=== PATIENT | male | born 1950 | race Caucasian/White ===

== ENCOUNTER → 2017-10-23 12:17 | Emergency (ER) | payer BC | END | disposition left against medical advice (07) | LOC: UCCORT 12:17 | DX: J32.9 Chronic sinusitis, unspecified (principal); Z53.21 Procedure and treatment not carried out due to patient leaving prior to being seen by health care provider ==

== ENCOUNTER 2018-01-05 12:27 | Emergency (ER) | payer MEDICARE, BC ==
[2018-01-05 14:06] VITALS: BP 149/82
--- NOTE | 2018-01-05 14:15 | UC ---
Back Pain HPI - HPI Summary HPI Summary: pt is c/o pain in his R low back for about 3 weeks. states gets spasms as well. it began the day after he was bent over cleaning out his hot tub. occasional shoots to his R side with a spasm. no relief with occasional tylenol - History of Current Complaint Chief Complaint: UCBackPain Stated Complaint: BACK PAIN Time Seen by Provider: 01/05/18 14:08 Hx Obtained From: Patient Onset/Duration: Gradual Onset Timing: Constant Pain Intensity: 4 Aggravating Factor(s): Movement Alleviating Factor(s): Rest Associated Signs And Symptoms: Negative: Fever, Weakness, Numbness, Tingling, Abdominal Pain, Flank Pain, Bladder Incontinence, Bowel Incontinence - Risk Factors Cauda Equina Risk Factors: Negative - Allergies/Home Medications Allergies/Adverse Reactions: Allergies Allergy/AdvReac Type Severity Reaction Status Date / Time No Known Allergies Allergy Verified 01/05/18 14:07 Home Medications: Home Medications B/P Med 1 tab PO DAILY 01/05/18 [History] PMH/Surg Hx/FS Hx/Imm Hx Cardiovascular History: Hypertension - Surgical History Surgical History: None - Social History Occupation: Retired Lives: With Family Alcohol Use: Weekly Substance Use Type: Marijuana Substance Use Comment - Amount & Last Used: occasional usage Smoking Status (MU): Never Smoked Tobacco - Immunization History Vaccination Up to Date: Yes Review of Systems Constitutional: Negative Skin: Negative Eyes: Negative ENT: Negative Respiratory: Negative Cardiovascular: Negative Gastrointestinal: Negative Genitourinary: Negative Motor: Negative Neurovascular: Negative Musculoskeletal: Other: - R low back pain Neurological: Negative Psychological: Negative Is Patient Immunocompromised?: No All Other Systems Reviewed And Are Negative: Yes Physical Exam Triage Information Reviewed: Yes Appearance: Well-Appearing Vital Signs: Initial Vital Signs Temp 98.1 F 01/05/18 14:00 Pulse 101 01/05/18 14:00 Resp 16 01/05/18 14:00 BP 149/82 01/05/18 14:00 Pulse Ox 99 01/05/18 14:00 Vital Signs Reviewed: Yes Eyes: Positive: Conjunctiva Clear ENT: Positive: Normal ENT inspection Neck: Positive: Supple, Nontender, No Lymphadenopathy, Other: - c-spine non tender Respiratory: Positive: Lungs clear, Normal breath sounds Cardiovascular: Positive: RRR, No Murmur Abdomen Description: Positive: Nontender, No Organomegaly, Soft. Negative: CVA Tenderness (R), CVA Tenderness (L), Distended, Guarding Bowel Sounds: Positive: Present Musculoskeletal: Positive: Other: - C-spine/back: loss of lordosis in lumbar region. spine non tender. tender R paraspinal mm lumbar region. lean to R, flexion at waist and bending at waist reproduces and worsens pt's pain. no saddle anesthesia. steady gait. 5/5 strength and 2+ reflexes x4. Neurological: Positive: Alert Psychological: Positive: Age Appropriate Behavior Skin Exam: Normal Skin: Negative: rashes Re-Evaluation - Re-Evaluation Second Eval Re-Evaluation Time: 14:52 Change: Improved - LESS MM SPASM Back Pain Course/Dx - Course Course Of Treatment: exam c/w mm spasm/pain lumbar region. no concern for infection, acute abdomen, caudua equina. U/A=trace lysed blood only and not typical of renal colic. will tx nsaid, mm relaxor and refer to PT. HTN HX, TX. - Differential Dx/Diagnosis Provider Diagnoses: Acute low back pain Discharge - Sign-Out/Discharge Documenting (check all that apply): Discharge - Discharge Plan Condition: Stable Disposition: HOME Prescriptions: Cyclobenzaprine TAB* [Flexeril 10 MG TAB*] 10 mg PO TID PRN #10 tab PRN Reason: Pain - Back Naproxen [Naprosyn] 500 mg PO BID #10 tablet Patient Education Materials: Acute Low Back Pain (ED) Additional Instructions: FOLLOW UP WITH YOUR DOCTOR AT [facility] IN 5 DAYS FOR A RECHECK AND SOONER IF WORSE. FOLLOW UP PT. - Billing Disposition and Condition Condition: STABLE Disposition: HOME
[2018-01-05] MEDS: Ketorolac INJ* 60 MG/2 ML VIAL IM ONE (14:25)
== END 2018-01-05 14:57 | disposition home or self-care (01) ==
LOC: UCCORT 12:27
DX: M54.5 Low back pain (principal); X50.9XXA Other and unspecified overexertion or strenuous movements or postures, initial encounter; X50.0XXA Overexertion from strenuous movement or load, initial encounter; Y93.E9 Activity, other interior property and clothing maintenance; Y92.009 Unspecified place in unspecified non-institutional (private) residence as the place of occurrence of the external cause; I10 Essential (primary) hypertension
CPT/HCPCS: 81003; 96372; 99212; G0463; J1885